=== PATIENT | female | born 1945 | race Caucasian/White ===

== ENCOUNTER 2022-06-19 10:45 | Inpatient (IN) | payer MEDICARE ==
[~2022-06-19] VITALS: Ht 154.9 cm; Wt 85.1 kg
[~2022-06-19 10:45] MED LIST: LISINOPRIL10 MG PO
[2022-06-19 10:59] VITALS: BP 124/54
[2022-06-19 11:00] VITALS: BP 90/55
[2022-06-19 11:12] LABS: IMMATURE GRANULOCYTES 1.1 % (0.0-5.0); MEAN CORPUSCULAR HGB 29.1 pG CALC (26.0-32.0); MEAN CORPUSCULAR HGB CONC 33.4 g/dL CAL (32.0-36.0); NEUT# 12.47 thou/uL (2.00-7.15); RED BLOOD COUNT 4.36 mill/uL (4.20-5.60); RED CELL DISTRI WIDTH 15.1 % (11.5-15.5)
[2022-06-19 11:14] LABS: HEMOGLOBIN 12.7 g/dl (12.0-16.0); MEAN CELL VOLUME 87.2 fL CALC (80.0-100.0)
[2022-06-19] MEDS ORDERED: PREDNISONE1 MG PO (11:20)
[2022-06-19 11:30] VITALS: BP 102/53
--- NOTE | 2022-06-19 11:34 | NUR ---
PT PRESENTS TO ROOM VIA WHEELCHAIR, STATES DIARRHEA X 10 DAYS. PT ALSO STATES CENTER CHEST PRESSURE, THIS PER NAUSEA AND COUGH.
[2022-06-19 11:47] LABS: ALBUMIN 3.9 g/dL (3.2-5.0); BILIRUBIN, TOTAL 0.5 mg/dL (0.0-1.4); POTASSIUM 4.3 mmol/l (3.5-5.1); TOTAL PROTEIN 6.9 g/dL (6.3-8.2)
[2022-06-19 11:59] LABS: CREATININE 3.8 mg/dL (0.5-1.0)
--- NOTE | 2022-06-19 12:53 | NUR ---
PT NOW WITH IVF RUNNING, BACK FROM CT SCAN. NO ACUTE DISTRESS NOTED.
--- NOTE | 2022-06-19 14:07 | NUR ---
Reassessment of patient completed. No distress noted.
[2022-06-19 15:36] LABS: URINE BILIRUBIN - DIPSTICK NEGATIVE (NEGATIVE); URINE BLOOD DIPSTICK SMALL (NEGATIVE); URINE COLOR YELLOW; URINE GLUCOSE - DIPSTICK NEGATIVE (NEGATIVE); URINE KETONE NEGATIVE (NEGATIVE); URINE LEUK ESTERASE NEGATIVE (NEGATIVE); URINE NITRITE - DIPSTICK NEGATIVE (Negative); URINE PH 5.5 (4.5-8.0); URINE PROTEIN - DIPSTICK NEGATIVE (NEG-TRACE); URINE UROBILINOGEN - DIPSTICK 0.2 E.U./dL (0.2)
[2022-06-19 15:42] LABS: URINE BACTERIA FEW hpf; URINE RBC 0-2 RBC/hpf (0-5); URINE SQUAMOUS EPITHELIAL CELL RARE EPI/hpf (0-FEW)
--- NOTE | 2022-06-19 15:55 | NUR ---
Admission Note Report Given to: BLAIR RN Transported by: x Wheelchair Transported with: Nurse X Patent IV x Care Asst Location: X [facility] ROOM 274
[2022-06-19] MEDS ORDERED: MILLIPRED5 M1 (16:10)
[2022-06-19] MEDS ORDERED: PREDNISONE5 MG PO (16:11)
--- NOTE | 2022-06-19 16:19 | NUR ---
PT RESTING IN HIGH FOWLERS POSITION. A/OX3 ASSESSMENT COMPLETED. PT HEART RHYTHM ON TELE. RESPIRATIONS ON ROOM AIR. IV SITE NOTED TO LAC . NS TO BE INFUSED PER EMAR ORDER. PT DENIES SKIN WOUNDS . ALL SAFETY PRECAUTIONS IN PLACE WITH CALL LIGHT IN REACH PT ORIENTED TO ROOM .
[2022-06-19 16:27] VITALS: BP 107/72
--- NOTE | 2022-06-19 19:29 | NUR ---
RECEIVED REPORT FROM NURSE PINTO. PATIENT RESTING IN BED, ASSISTED PATEINT TO BATHROOM, UNSTEADY GAIT, ALERT ORTIENTED X 3 ABLE TO MAKE NEEDS KNONW, ONGOING NS @ 150CC/HR INFUSING WELL ON RAC, REMAINS ON TELETRY, LBM 06/19, ASSISTED BACK IN BED, CALL LIGHT IN REACH.
--- NOTE | 2022-06-20 | NUR ---
PATIENT AWAKE, ASSISTED TO [facility] AND BACK IN BED.
[2022-06-20 00:07] VITALS: BP 120/83
--- NOTE | 2022-06-20 03:48 | NUR ---
PATIENT AWAKE AT THIS TIME, REMAINS ON TELEMETRY, ASSISTED TO BED SIDE COMMODE AND BACK IN BED, CALL LIGHT IN REACH.
[2022-06-20 04:16] VITALS: BP 116/72
[2022-06-20 06:44] VITALS: BP 116/72
--- NOTE | 2022-06-20 07:36 | NUR ---
PT RESTING IN LOW FOWLERS POSITION. PT ASSESMENT AND VS COMPLETED. HEART RHYTHM ON TELE. RESPIRATIONS ON ROOM AIR. IV SITE NOTED TO RAC NS INFUSING. BOWEL SOUNDS ACTIVE. PT ASSISTED TO BSC. 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 ALL SAFETY PRECAUTIONS IN PLACE CALL LIGHT INREACH.
[2022-06-20 08:06] LABS: HEMATOCRIT 34.7 % (37.0-47.0); HEMOGLOBIN 11.7 g/dl (12.0-16.0); MEAN CORPUSCULAR HGB 29.3 pG CALC (26.0-32.0); MEAN CORPUSCULAR HGB CONC 33.7 g/dL CAL (32.0-36.0); RED BLOOD COUNT 3.99 mill/uL (4.20-5.60); RED CELL DISTRI WIDTH 15.2 % (11.5-15.5)
[2022-06-20 08:37] LABS: MAGNESIUM 2.2 mg/dL (1.6-2.3)
[2022-06-20 08:39] LABS: POTASSIUM 4.5 mmol/l (3.5-5.1)
[2022-06-20 08:49] LABS: CREATININE 1.6 mg/dL (0.5-1.0)
--- NOTE | 2022-06-20 08:50 | NUR ---
PT BUN 135 CH. PT LAB RESULTS READ TO PROVIDER. NO NEW ORDERS.
[2022-06-20 14:43] VITALS: BP 116/72
--- NOTE | 2022-06-20 14:50 | NUR ---
I attempted several times durin the day to coax the patient to change out of her underwear and pants, but she prefers her own. she feels more comfortable that way.
[2022-06-20 18:54] VITALS: BP 97/64
--- NOTE | 2022-06-20 20:28 | NUR ---
PT RETURNED FROM BATHROOM, NO SIGNS OF DISTRESS NOTED. PT MEDICATED PER MAR, CALL LIGHT IN REACH,CONTINUE TO MONITOR.
[2022-06-20 23:47] VITALS: BP 111/55
--- NOTE | 2022-06-21 | NUR ---
PT RESTING IN BED, NO SIGNS OF DISTRESS NOTED, RESP EVEN AND UNLABORED. NEW IV BAG HUNG, WARM BLANKET PROVIDED PER REQUEST. CALL LIGHT IN REACH,CONTINUE TO MONITOR.
[2022-06-21 04:00] VITALS: BP 114/70
--- NOTE | 2022-06-21 04:35 | NUR ---
PT RESTING IN BED, NO SIGNS OF DISTRESS NOTED, RESP EVEN AND UNLABORED. VITALS OBTAINED. PT DENIES ANY NEEDS OR COMPLAINTS AT THIS TIME. CALL LIGHT IN REACH,CONTINUE TO MONITOR.
[2022-06-21 04:36] VITALS: BP 114/70
[2022-06-21 06:35] VITALS: BP 104/67
--- NOTE | 2022-06-21 07:08 | NUR ---
PT RESTING IN LOW FOWLERS POSITION. PT A/OX3 ASSESSMENT AND VS COMPLETED PT HEART RHYTHM ON TELE. RESPIRATIONS ON ROOM AIR. NEW IV SITE NOTED S.L. PT AWARE THE NEED OF FLUIDS AND IV SITE CARE. PT DENIES ADDITIONAL NEEDS AT THE TIME ALL SAFETY PRECAUTIONS IN PLACE WITH CALL LIGHT INREACH.
[2022-06-21 09:54] LABS: CREATININE 1.1 mg/dL (0.5-1.0); POTASSIUM 4.9 mmol/l (3.5-5.1); TOTAL PROTEIN 5.9 g/dL (6.3-8.2)
[2022-06-21 09:59] LABS: BILIRUBIN, TOTAL 0.8 mg/dL (0.0-1.4)
[2022-06-21 10:53] VITALS: BP 118/68
[2022-06-21 12:44] LABS: MEAN CORPUSCULAR HGB 29.2 pG CALC (26.0-32.0); MEAN CORPUSCULAR HGB CONC 30.8 g/dL CAL (32.0-36.0); NEUT# 5.8 thou/uL (2.00-7.15); RED BLOOD COUNT 4.87 mill/uL (4.20-5.60); RED CELL DISTRI WIDTH 15.8 % (11.5-15.5)
--- NOTE | 2022-06-21 12:50 | NUR ---
PT TO BE DC
[2022-06-21 12:54] LABS: HEMATOCRIT 46.1 % (37.0-47.0); HEMOGLOBIN 14.2 g/dl (12.0-16.0); MEAN CELL VOLUME 94.7 fL CALC (80.0-100.0)
[2022-06-21] MEDS ORDERED: PROTONIX40 M2 PO (12:57)
--- NOTE | 2022-06-21 13:55 | NUR ---
Discharge instructions given. Patient verbalizes understanding of same. Discharged in stable condition via Wheelchair to Home with staff. All belongings sent with pt.IV REMOVED TELE REMOVED.
== END 2022-06-21 13:55 | disposition home or self-care (01) | DRG 682 ==
LOC: ED 10:45 → ED-I 12:20 → ED 14:25 → MS2 14:26
PROVIDERS: Family Medicine; Internal Medicine; ADMIT Internal Medicine; ATTEND Internal Medicine
DX: N17.9 Acute kidney failure, unspecified (principal); K85.90 Acute pancreatitis without necrosis or infection, unspecified; I10 Essential (primary) hypertension
CPT/HCPCS: J3475